=== PATIENT | female | born 1950 | race Two or more races ===

== ENCOUNTER 2021-06-19 08:00 | Day surgery (SDC) | payer OTHER ==
[~2021-06-19 08:00] MED LIST: CLONAZEPAM2 MG PO; DICY20TA PO; OMEGA 3 1,0001 EACH PO; PROZAC20 MG PO; SYNTHROID100 MCG PO; VITAMIN C PO; VITAMIN D310 MCG/1 M PO; VITAMIN E PO; ZOCOR20 MG PO; [UNRECOGNIZED DRUG - OTHER] PO; [UNRECOGNIZED DRUG - OTHER] PO
[2021-06-19] MEDS ORDERED: CILOXAN5 ML OTIC (15:51)
== END 2021-06-19 17:55 | disposition home or self-care (01) ==
LOC: CIR.AMB 08:00
PROVIDERS: ATTEND Otolaryngology Otology & Neurotology
DX: H72.01 Central perforation of tympanic membrane, right ear (principal); H90.A31 Mixed conductive and sensorineural hearing loss, unilateral, right ear with restricted hearing on the contralateral side

== ENCOUNTER → 2021-09-18 | Day surgery (SDC) | payer OTHER ==
[~2021-09-18] VITALS: Ht 157.5 cm; Wt 68.5 kg
[~2021-09-18] MED LIST changes: +CEPHALEXIN500 MG PO; +CILOXAN5 ML OTIC; +DAFLONEX-XL 11300 MG PO; +MOBIC15 MG PO
== END | disposition home or self-care (01) ==
LOC: ADM 09-15 08:30 → CIR.AMB 08:30
PROVIDERS: ATTEND Otolaryngology Otology & Neurotology
DX: H72.02 Central perforation of tympanic membrane, left ear (principal); H90.A12 Conductive hearing loss, unilateral, left ear with restricted hearing on the contralateral side; H74.312 Ankylosis of ear ossicles, left ear; Z20.822 Contact with and (suspected) exposure to COVID-19; E03.9 Hypothyroidism, unspecified; K21.9 Gastro-esophageal reflux disease without esophagitis; Z85.3 Personal history of malignant neoplasm of breast